=== PATIENT | female | born 1990 | race Caucasian/White ===

== ENCOUNTER 2016-09-15 20:55 | Emergency (ER) | payer SELFPAY ==
[~2016-09-15] VITALS: Ht 157.5 cm; Wt 54.0 kg
[~2016-09-15 20:55] MED LIST: PREN1TAB22 PO
[2016-09-15] MEDS ORDERED: LIDOCAINE HCL 1% 10 ML VIAL INJ ONE (23:00)
[2016-09-15 23:11] VITALS: BP 126/86
[2016-09-15] MEDS ORDERED: CEPHALEXIN MONOHYDRATE 500 MG CAPSULE PO ONE (23:15)
[2016-09-15] MEDS ORDERED: PERTUSS(ACELL),DIPH,TET VAC/PF 0.5 ML VIAL IM ONE (23:15)
== END 2016-09-15 23:22 | disposition home or self-care (01) ==
LOC: EMS 20:57
DX: T16.1XXA Foreign body in right ear, initial encounter (principal); X58.XXXA Exposure to other specified factors, initial encounter; Y93.89 Activity, other specified; Y92.89 Other specified places as the place of occurrence of the external cause; Y99.8 Other external cause status
CPT/HCPCS: 90471; 90715; 99284; J3490

== ENCOUNTER 2022-03-11 17:41 | Emergency (ER) | payer MEDICAID ==
[~2022-03-11] VITALS: Ht 157.5 cm; Wt 59.1 kg
[2022-03-11 17:48] VITALS: BP 130/72
[2022-03-11 19:24] LABS: BASOPHILS % (AUTO) 0.5 % (0.0-2.0); EOSINOPHILS % (AUTO) 1.7 % (1.0-6.0); HEMATOCRIT 40.7 % (36-46); HEMOGLOBIN 13.3 g/dL (12.0-16.0); LYMPHOCYTES # (AUTO) 1.9 K/uL (1.0-4.8); LYMPHOCYTES % (AUTO) 22.8 % (22.0-44.0); MEAN CORPUSCULAR HEMOGLOBIN 26.6 pg (26.0-34.0); MEAN CORPUSCULAR HGB CONC 32.7 G/dL (31.0-37.0); MEAN CORPUSCULAR VOLUME 81 fL (80-100); MONOCYTES # (AUTO) 0.5 K/uL (0.1-1.0); MONOCYTES % (AUTO) 5.4 % (2.0-9.0); NEUTROPHILS # (AUTO) 5.9 K/uL (1.8-7.7); NEUTROPHILS % (AUTO) 69.6 % (40.0-70.0); PLATELET COUNT (AUTO) 304 K/uL (150-450); RED BLOOD CELL COUNT(AUTO) 5.01 MIL/uL (4.00-5.20); RED CELL DISTRIBUTION WIDTH 14.2 % (11.5-14.5)
[2022-03-11 19:37] LABS: ANION GAP 5 mmol/L (8-16); CALCIUM, TOTAL 9.1 mg/dL (8.8-10.5); CARBON DIOXIDE 29 mmol/L (22-29); CHLORIDE 105 mmol/L (98-107); CREATININE 0.62 mg/dL (0.60-1.30); GLOMERULAR FILTR. RATE CALC > 60 mL/min (>60); GLUCOSE,RANDOM 87 mg/dL (70-110); POTASSIUM 3.7 mmol/L (3.5-5.1); SODIUM SERUM 139 mmol/L (136-145); UREA NITROGEN, BLOOD 15 mg/dL (7-18)
[2022-03-11 19:42] LABS: ALANINE AMINOTRANSFERASE 27 U/L (12-78); ALBUMIN 3.5 g/dL (3.4-5.0); ALKALINE PHOSPHATASE 100 U/L (46-116); ASPARTATE AMINOTRANSFERASE 20 U/L (15-37); BILIRUBIN,TOTAL 0.2 mg/dL (0.1-1.0); LIPASE 166 U/L (73-393); TOTAL PROTEIN, SERUM 7.9 g/dL (6.4-8.2)
== END 2022-03-11 21:28 | disposition still patient (30) ==
LOC: EMS 17:50
DX: R07.89 Other chest pain (principal)
CPT/HCPCS: 71045; 71120; 80053; 83690; 85025; 99284; 36415-L1; 36415-TC

== ENCOUNTER 2024-03-07 16:43 | Emergency (ER) | payer MEDICAID, OTHER ==
[~2024-03-07] VITALS: Ht 157.5 cm; Wt 59.1 kg
[2024-03-07 17:06] VITALS: TEMP 98.6
[2024-03-07] MEDS: LIDOCAINE 5% TRANSDERMAL PATCH TD ONE (18:38)
[2024-03-07] MEDS: ACETAMINOPHEN 500 MG TABLET PO ONE (18:39)
[2024-03-07 19:26] VITALS: BP 119/73; PULSE 80; RESP 20; O2SAT 100
== END 2024-03-07 19:33 | disposition home or self-care (01) ==
LOC: EMS 16:43
DX: S09.90XA Unspecified injury of head, initial encounter (principal); W10.9XXA Fall (on) (from) unspecified stairs and steps, initial encounter; Y93.89 Activity, other specified; Y92.89 Other specified places as the place of occurrence of the external cause; Y99.8 Other external cause status
CPT/HCPCS: 99282; Z7502; Z7610